=== PATIENT | female | born 1980 | race Asian ===

== ENCOUNTER 2017-04-17 10:02 | Inpatient (IN) | payer SELFPAY ==
[~2017-04-17] VITALS: Ht 162.6 cm; Wt 70.8 kg
[2017-04-17] MEDS ORDERED: PREN-546 PO (10:40)
[2017-04-17] MEDS ORDERED: PROMETHAZINE 25 MG/ML VIAL IVP PRN (10:40)
[2017-04-17] MEDS ORDERED: NALBUPHINE HYDROCHLORIDE 10 MG/ML VIAL IVP PRN (10:40)
[2017-04-17] MEDS ORDERED: METHYLERGONOVINE 0.2 MG/ML AMP IM PRN (10:40)
[2017-04-17] MEDS ORDERED: LACTATED RINGERS 1,000 ML IV SCH (10:40)
[2017-04-17] MEDS ORDERED: OXYTOCIN 20 UNITS/LR PREMIX 1,000 ML IV SCH (10:50)
[2017-04-17 11:03] LABS: BASOPHILS # (AUTO) 0.1 K/uL (0.00-0.22); BASOPHILS % (AUTO) 0.7 % (0.0-2.0); EOSINOPHILS # (AUTO) 0.2 K/uL (0-0.4); EOSINOPHILS % (AUTO) 1.6 % (0.0-4.0); HEMATOCRIT 36.3 % (36-48); HEMOGLOBIN 12.2 g/dL (12.0-16.0); LYMPHOCYTES # (AUTO) 1.4 K/uL (2.5-16.5); LYMPHOCYTES % (AUTO) 12.2 % (20.5-51.1); MEAN CORPUSCULAR HEMOGLOBIN 32 pg (27-31); MEAN CORPUSCULAR HGB CONC 34 g/dL (33-37); MEAN CORPUSCULAR VOLUME 94 fL (80-94); MONOCYTES # (AUTO) 0.7 K/uL (0.8-1.0); MONOCYTES % (AUTO) 6.3 % (1.7-9.3); NEUTROPHILS # (AUTO) 9.4 K/uL (1.8-7.7); NEUTROPHILS % (AUTO) 79.2 % (42.2-75.2); PLATELET COUNT (AUTO) 186 K/uL (140-450); RED BLOOD CELL COUNT(AUTO) 3.84 MIL/uL (4.20-5.40); RED CELL DISTRIBUTION WIDTH 12.6 % (11.6-13.7); WHITE BLOOD COUNT (AUTO) 11.8 K/uL (4.8-10.8)
[2017-04-17 11:04] LABS: BILIRUBIN,URINE NEGATIVE (NEGATIVE); COLOR,URINE YELLOW (YELLOW); NITRITE, URINE NEGATIVE (NEGATIVE); PROTEIN,URINE NEGATIVE (NEGATIVE); UGLUCOSE NEGATIVE (NEGATIVE); UROBILINOGEN,URINE 0.2 EU/dL (0.2 - 1)
[2017-04-17 11:14] LABS: APPEARANCE,URINE HAZY (CLEAR)
[2017-04-17 11:15] LABS: BACTERIA,URINE OCCASSIONAL /HPF (None Seen)
[2017-04-17 11:16] LABS: LEUKOCYTE ESTERASE ,URINE 1+ (NEGATIVE)
[2017-04-17 11:17] LABS: BLOOD, URINE TRACE (NEGATIVE)
[2017-04-17] MEDS ORDERED: OXYTOCIN 20 UNITS/LR PREMIX 1,000 ML IV ONE (11:30)
[2017-04-17] MEDS ORDERED: NALBUPHINE HYDROCHLORIDE 10 MG/ML VIAL ONE (13:39)
[2017-04-17] MEDS ORDERED: PROMETHAZINE 25 MG/ML VIAL ONE (13:40)
[2017-04-17] MEDS ORDERED: BUPIVACAINE 0.125%/NS PREMIX 250 ML ONE (15:03)
[2017-04-18] MEDS ORDERED: METHYLERGONOVINE 0.2 MG/ML AMP IM PRN (00:30)
[2017-04-18] MEDS ORDERED: OXYTOCIN 10 UNITS/ML VIAL IM PRN (00:30)
[2017-04-18] MEDS ORDERED: MEASLES, MUMPS, AND RUBELLA 1 VIAL SQVAC PRN (00:30)
[2017-04-18] MEDS ORDERED: HYDROcodone/APAP 5/325 MG 1 TAB TAB PO PRN (00:30)
[2017-04-18] MEDS ORDERED: IBUPROFEN 600 MG TAB PO SCH (08:00)
--- NOTE | 2017-04-19 09:49 | NUR ---
PATIENT HAS BEEN SCREENED AND CATEGORIZED LOW NUTRITION RISK. PATIENT WILL BE SEEN WITHIN 7 DAYS OF ADMISSION. 04/24/[address]
[2017-04-19 10:04] LABS: HEMATOCRIT 32.8 % (36-48)
[2017-04-19] MEDS ORDERED: IBUP-2213 PO (10:26)
== END 2017-04-19 21:33 | disposition home or self-care (01) | DRG 775 ==
LOC: MLD 10:02 → MFCC 04-18 05:28
PROVIDERS: ADMIT Obstetrics & Gynecology; ATTEND Obstetrics & Gynecology
PROC: 10E0XZZ Delivery of Products of Conception, External Approach (ICD-10-PCS; principal; 2017-04-18)
PROC: 0W8NXZZ Division of Female Perineum, External Approach (ICD-10-PCS; 2017-04-18)
PROC: 3E0R3CZ (ICD-10-PCS; 2017-04-18)
PROC: 00HU33Z Insertion of Infusion Device into Spinal Canal, Percutaneous Approach (ICD-10-PCS; 2017-04-18)
PROC: 10907ZC Drainage of Amniotic Fluid, Therapeutic from Products of Conception, Via Natural or Artificial Opening (ICD-10-PCS; 2017-04-18)
PROC: 3E0134Z Introduction of Serum, Toxoid and Vaccine into Subcutaneous Tissue, Percutaneous Approach (ICD-10-PCS; 2017-04-18)
DX: O69.81X0 Labor and delivery complicated by cord around neck, without compression, not applicable or unspecified (principal); Z3A.39 39 weeks gestation of pregnancy; Z37.0 Single live birth; Z23 Encounter for immunization
CPT/HCPCS: 36415; 51702; 59409; 81001; 85018; 85025; 86592; 86886; 86900; 86901; 87086; 90707; J2300; J2550; J2590; J3490; J7120